=== PATIENT | male | born 1965 | race American Indian/Alaskan Native ===

== ENCOUNTER 2018-06-08 16:51 | Emergency (ER) | payer OTHER ==
[2018-06-08 17:05] VITALS: BMI 33.0
[2018-06-08 17:06] VITALS: TEMP 98.1
--- NOTE | 2018-06-08 17:53 | C.PDOC ---
History Of Present Illness 53 y/o male presents to the ED with 2 day history of cough, runny nose, sore throat, and headache. No fever. Patient denies any SOB, chest pain, abdominal pain, vomiting, or diarrhea. No recent travel. + Sick contact in the patients daughter, as well as son who is here with same symptoms. Time Seen by Provider: 06/08/18 17:13 Chief Complaint (Nursing): Cough, Cold, Congestion History Per: Patient History/Exam Limitations: no limitations Onset/Duration Of Symptoms: Days (x 2) Current Symptoms Are (Timing): Still Present Associated Symptoms: Sore Throat, Cough, Nasal Congestion Past Medical History Reviewed: Historical Data, Nursing Documentation, Vital Signs Vital Signs: Last Vital Signs Temp 98.1 F 06/08/18 17:05 Pulse 101 H 06/08/18 17:05 Resp 18 06/08/18 17:05 BP 127/79 06/08/18 17:05 Pulse Ox 98 06/08/18 17:05 Family History: States: No Known Family Hx - Social History Hx Tobacco Use: No Hx Alcohol Use: Yes Hx Substance Use: No - Immunization History Hx Tetanus Toxoid Vaccination: No Hx Influenza Vaccination: Yes Hx Pneumococcal Vaccination: No Review Of Systems Except As Marked, All Systems Reviewed And Found Negative. Constitutional: Negative for: Fever, Chills ENT: Positive for: Nose Discharge, Throat Pain Cardiovascular: Negative for: Chest Pain Respiratory: Positive for: Cough. Negative for: Shortness of Breath Gastrointestinal: Negative for: Vomiting, Abdominal Pain, Diarrhea Neurological: Positive for: Headache. Negative for: Weakness Physical Exam - Physical Exam Appears: Non-toxic, No Acute Distress Skin: Normal Color, Warm, Dry, No Rash Head: Atraumatic, Normacephalic Eye(s): bilateral: Normal Inspection, PERRL, EOMI Ear(s): Bilateral: Normal (TMs clear) Nose: Normal Oral Mucosa: Moist Throat: Normal (uvula midline, no swelling), No Erythema, No Exudate Neck: Normal ROM, Supple Chest: Symmetrical Cardiovascular: Rhythm Regular, No Friction Rub, No Murmur Respiratory: Normal Breath Sounds, No Rales, No Rhonchi, No Wheezing Gastrointestinal/Abdominal: Soft, No Tenderness Back: Normal Inspection, No CVA Tenderness Extremity: Normal ROM, No Tenderness, No Swelling Extremity: Bilateral: Atraumatic, Normal Color And Temperature Neurological/Psych: Oriented x3, Normal Speech, Normal Motor Gait: Steady ED Course And Treatment O2 Sat by Pulse Oximetry: 98 (RA) Pulse Ox Interpretation: Normal Medical Decision Making Medical Decision Making: Plan: - 40 mg PO Prednisone Disposition - Disposition Referrals: [facility] [Outside] Disposition: HOME/ ROUTINE Disposition Time: 18:22 Condition: GOOD Additional Instructions: Follow up with the medical doctor within 1-2 days. return if worsened. Prescriptions: Loratadine [Claritin] 10 mg PO DAILY #10 tab predniSONE [Prednisone] 10 mg PO BID #10 tab Instructions: Upper Respiratory Infection (ED) Forms: [employer] (Kyrgyz) - Clinical Impression Clinical Impression: Upper respiratory infection - PA / SAWMILL MANAGER / Resident Statement MD/DO has reviewed & agrees with the documentation as recorded. - Scribe Statement The provider has reviewed the documentation as recorded by the Scribe Alyson Joiner All medical record entries made by the Scribe were at my direction and personally dictated by me. I have reviewed the chart and agree that the record accurately reflects my personal performance of the history, physical exam, medical decision making, and the department course for this patient. I have also personally directed, reviewed, and agree with the discharge instructions and disposition.
[2018-06-08 18:25] VITALS: BP 129/80; PULSE 93; RESP 16
[2018-06-08 18:26] VITALS: O2SAT 98
== END 2018-06-08 18:32 | disposition home or self-care (01) ==
LOC: C.ER 16:51
DX: J06.9 Acute upper respiratory infection, unspecified (principal)